=== PATIENT | female | born 1985 | race African-American/Black ===

== ENCOUNTER 2016-07-03 12:16 | Emergency (ER) | payer OTHER ==
[~2016-07-03] VITALS: Ht 162.6 cm; Wt 86.6 kg
[~2016-07-03 12:16] MED LIST: AMOXICILLIN500 MG ORAL; AUGMENTIN600 MG/5 M ORAL; FIORICET1 EA PO; HYCET 7.5 MG-3473 ML ORAL; IBUPROFEN100 MG/5 M ORAL; IBUPROFEN600 MG ORAL; KEFLEX500 MG ORAL; METRONIDAZOLE500 MG PO; NKM; NORCO 5-325 TA1 EACH ORAL; NORCO 7.5-3251 EACH PO; PHENAZOPYRIDIN100 MG ORAL; PNV-OB WITH DH1 EACH PO; PREDNISOLO15 MG/5 M1 PO; TRAMADOL HCL50 MG ORAL
[2016-07-03 12:20] VITALS: BP 92/59
--- NOTE | 2016-07-03 12:42 | Emergency Room Report ---
History of Present Illness General Chief Complaint: Female Urogenital Problems Source: Patient Present Illness HPI 31-year-old female presents to emergency Department complaining of frequency x1 week. Patient reports intermittent dysuria only if she has to hold her urine. Patient denies hematuria denies low back pain denies nausea, vomiting, fevers, chills. She denies and states that she has IUD.Denies vaginal discharge, abdominal pain or rashes. Denies CP, Palpitations, LOC, AMS, dizziness, Changes in Vision, Sensation, paresthesias, or a sudden severe headache. Allergies: Coded Allergies: No Known Allergies (Unverified , 04/06/12) Patient History Past Medical History: see triage record Past Surgical History: none Pertinent Family History: none Last Menstrual Period: 06/29/2016 Now: No Immunizations: UTD Reviewed Nursing Documentation: PMH: Agreed, PSxH: Agreed Nursing Documentation-PMH Past Medical History: No Stated History Review of Systems All Other Systems: negative except mentioned in HPI Physical Exam Vital Signs Date Time Temp Pulse Resp B/P Pulse Ox O2 Delivery O2 Flow Rate FiO2 07/03/16 12:20 97.0 78 16 92/59 99 Room Air Sp02 EP Interpretation: reviewed, normal General Appearance: no apparent distress, alert, GCS 15, non-toxic Head: normocephalic, atraumatic Eyes: bilateral eye PERRL, bilateral eye normal inspection ENT: hearing grossly normal, normal pharynx, no angioedema, normal voice Neck: full range of motion, supple/symm/no masses Respiratory: lungs clear, normal breath sounds, speaking full sentences Cardiovascular #1: regular rate, rhythm, no edema Rectal: deferred Genitourinary: normal inspection, no CVA tenderness Musculoskeletal: back normal, gait/station normal, normal range of motion, non- tender Neurologic: alert, oriented x3, responsive, motor strength/tone normal, sensory intact, speech normal Psychiatric: judgement/insight normal, memory normal, mood/affect normal Skin: normal color, no rash, warm/dry, well hydrated Medical Decision Making PA Attestation Dr. Matt is my supervising Physician whom patient management has been discussed with. Diagnostic Impression: Primary Impression: UTI (urinary tract infection) Qualified Codes: N30.00 - Acute cystitis without hematuria Additional Impression: Frequency of urination ER Course 31-year-old female presents to emergency Department complaining of frequency x1 week. Patient reports intermittent dysuria only if she has to hold her urine. Patient denies hematuria denies low back pain denies nausea, vomiting, fevers, chills. She denies and states that she has IUD.Denies vaginal discharge, abdominal pain or rashes. Ddx considered but are not limited to UTi , Pyelo, STI, Stone, Cystitis Vital signs: are WNL, pt. is afebrile H&PE are most consistent with UTI ORDERS: - UA labs are attached : elevated WBC's and leukocytes with few bacteria consistent with acute infection. ED INTERVENTIONS: None required at this time. DISCHARGE: At this time pt. is stable for d/c to home. Will provide printed patient care instructions, and any necessary prescriptions. Care plan and follow up instructions have been discussed with the patient prior to discharge. Labs Test 07/03/16 12:25 Urine Color Pale yellow Urine Appearance Clear Urine pH 6 (4.5-8.0) Urine Specific [place] 1.010 (1.005-1.035) Urine Protein Negative (NEGATIVE) Urine Glucose (UA) Negative (NEGATIVE) Urine Ketones Negative (NEGATIVE) Urine Occult Blood 1+ (NEGATIVE) Urine Nitrite Negative (NEGATIVE) Urine Bilirubin Negative (NEGATIVE) Urine Urobilinogen Normal MG/DL (0.0-1.0) Urine Leukocyte Esterase 2+ (NEGATIVE) Urine RBC 0-2 /HPF (0 - 2) Urine WBC 5-10 /HPF (0 - 2) Urine Squamous Epithelial Cells Few /LPF (NONE/OCC) Urine Bacteria Few /HPF (NONE) Urine HCG, Qualitative Negative Last Vital Signs Date Time Temp Pulse Resp B/P Pulse Ox O2 Delivery O2 Flow Rate FiO2 07/03/16 12:20 97.0 16 92/59 99 Room Air 07/03/16 12:20 78 Disposition: HOME, SELF-CARE Condition: Stable Scripts Nitrofurantoin Monohyd/M-Cryst* (MACROBID 100 MG*) 100 Mg Capsule 100 MG ORAL EVERY 12 HOURS for 5 Days, #10 CAP Prov: Sandhya Gonzales 07/03/16 Referrals: [facility],REFERRING (PCP) Patient Instructions: Urinary Tract Infection Additional Instructions: Take medications as directed. Follow up with PCP in 3-5 days Return sooner to ED if new symptoms occur, or current symptoms become worse. - Please note that this Emergency Department Report was dictated using [employer] technology software, occasionally this can lead to erroneous entry secondary to interpretation by the dictation equipment. Sandhya Gonzales Jul 03, 2016 12:42
[2016-07-03 12:53] LABS: APPEARANCE,URINE CLEAR; KETONES,URINE NEGATIVE (NEGATIVE); LEUKOCYTE ESTERASE ,URINE 2+ (NEGATIVE); NITRITE,URINE NEGATIVE (NEGATIVE); PH,URINE 6 (4.5-8.0); PROTEIN,URINE NEGATIVE (NEGATIVE); UROBILINOGEN,URINE NORMAL MG/DL (0.0-1.0)
[2016-07-03 13:08] LABS: BACTERIA,URINE FEW /HPF; RBC,URINE 0-2 /HPF (0 - 2); SQUAMOUS EPITHELIAL CELL,UR FEW /LPF (NONE/OCC)
[2016-07-03] MEDS ORDERED: NITROFURANTOIN100 M2 ORAL (13:11)
[2016-07-03 13:29] VITALS: BP 92/59
== END 2016-07-03 13:30 | disposition home or self-care (01) ==
LOC: EMR 12:35
DX: N30.00 Acute cystitis without hematuria (principal); Z97.5 Presence of (intrauterine) contraceptive device
CPT/HCPCS: 81003; 81025; 99283

== ENCOUNTER 2017-03-14 00:41 | Emergency (ER) | payer MEDICAID, OTHER ==
[~2017-03-14] VITALS: Ht 160 cm; Wt 89.8 kg
[~2017-03-14 00:41] MED LIST changes: +NITROFURANTOIN100 M2 ORAL
[2017-03-14 00:44] VITALS: BP 114/67
[2017-03-14 01:32] LABS: APPEARANCE,URINE CLEAR; KETONES,URINE NEGATIVE (NEGATIVE); NITRITE,URINE NEGATIVE (NEGATIVE); PH,URINE 6 (4.5-8.0); PROTEIN,URINE NEGATIVE (NEGATIVE); UROBILINOGEN,URINE NORMAL MG/DL (0.0-1.0)
[2017-03-14 01:44] LABS: LEUKOCYTE ESTERASE ,URINE 1+ (NEGATIVE)
[2017-03-14 01:45] LABS: SQUAMOUS EPITHELIAL CELL,UR FEW /LPF (NONE/OCC)
[2017-03-14 03:30] VITALS: BP 110/74
--- NOTE | 2017-03-14 03:59 | Emergency Room Report ---
History of Present Illness General Chief Complaint: Abdominal Pain Source: Patient Present Illness HPI 31-year-old female with 2-3 days of umbilical pain "feels like baby kicking around." Negative urine test at [facility]. Patient convinced she is . Denies nausea/vomiting, diarrhea, urinary complaints. Had IUD removed a few months ago - hasnt had normal menstrual period since Thinks it may be happening now Allergies: Coded Allergies: No Known Allergies (Unverified , 04/06/12) Patient History Past Medical History: none Past Surgical History: none Pertinent Family History: none Social History: Denies: smoking, alcohol use, drug use Last Menstrual Period: UNK Now: No Immunizations: UTD Reviewed Nursing Documentation: PMH: Agreed, PSxH: Agreed Nursing Documentation-PMH Past Medical History: No Stated History Review of Systems All Other Systems: negative except mentioned in HPI Physical Exam Vital Signs Date Time Temp Pulse Resp B/P (MAP) Pulse Ox O2 Delivery O2 Flow Rate FiO2 03/14/17 00:44 97.6 81 16 114/67 97 Room Air Sp02 EP Interpretation: reviewed, normal General Appearance: normal inspection, well appearing, no apparent distress, alert, GCS 15, non-toxic Head: normocephalic, atraumatic Eyes: bilateral eye PERRL, bilateral eye EOMI ENT: normal ENT inspection, hearing grossly normal, normal pharynx, no angioedema, normal voice, TMs + canals normal, uvula midline, moist mucus membranes Neck: normal inspection, full range of motion, supple, thyroid normal, no meningismus, no bony tend Respiratory: normal inspection, lungs clear, normal breath sounds, no rhonchi, no respiratory distress, no retraction, no accessory muscle use, no wheezing, speaking full sentences Cardiovascular #1: regular rate, rhythm, no edema, no JVD, normal capillary refill Gastrointestinal: normal inspection, normal bowel sounds, non tender, soft, no mass, no peritonitis, non-distended, no guarding, no hernia, no pulsatile mass, other - periumbilical scar. Non-focal abdomen. Genitourinary: no CVA tenderness Musculoskeletal: normal inspection, back normal, normal range of motion, no calf tenderness, pelvis stable, Oneil's Sign negative Neurologic: normal inspection, alert, oriented x3, responsive, film librarian III-XII nml as tested, motor strength/tone normal, cerebellar normal, normal gait, speech normal Psychiatric: normal inspection, judgement/insight normal, mood/affect normal, no suicidal/homicidal ideation, no delusions Skin: normal inspection, normal color, no rash Lymphatic: normal inspection, no adenopathy Medical Decision Making Diagnostic Impression: Primary Impression: Menstrual cramps ER Course Urine and serum test negative UA negative for infection - some hematuria Improved symptoms with toradol, tylenol Advised motrin as needed for pain Likely menstrual cramping/pain Non-focal abdomen, stable vitals - unlikely acute bacterial or surgical process ER course: Patient has remained stable during ED stay. Patient is to be discharged to home. Patient is instructed to follow up with their primary care doctor within 5 days. Patient is instructed to follow up with *specialist within 3 days. Strict return precautions discussed with patient such as fever, chills, worsening/severe pain, nausea, vomiting, which may indicate severe illness. Patient verbalizes understanding and agrees with plan. Please note that this Emergency Department Report was dictated using [employer] technology software, occasionally this can lead to erroneous entry secondary to interpretation by the dictation equipment Last Vital Signs Date Time Temp Pulse Resp B/P (MAP) Pulse Ox O2 Delivery O2 Flow Rate FiO2 03/14/17 00:49 97.5 81 16 114/67 97 Room Air Status: improved Disposition: HOME, SELF-CARE Condition: Improved Patient Instructions: Abdominal Pain, Adult Additional Instructions: - Take ibuprofen every 8 hours with food as needed for pain - Both urine and blood/serum tests negative for CASEY HENDERSON M.D. Mar 14, 2017 03:59
[2017-03-14 04:00] VITALS: BP 110/74
== END 2017-03-14 04:00 | disposition home or self-care (01) ==
LOC: EMR 00:54
DX: R25.2 Cramp and spasm (principal); R31.9 Hematuria, unspecified
CPT/HCPCS: 36415; 81003; 81025; 84702; 99284

== ENCOUNTER 2017-04-02 19:26 | Emergency (ER) | payer MEDICAID, OTHER ==
[~2017-04-02] VITALS: Ht 160 cm; Wt 89.4 kg
[2017-04-02 20:00] VITALS: BP 113/74
[2017-04-02 20:58] LABS: APPEARANCE,URINE CLEAR; BILIRUBIN, URINE NEGATIVE (NEGATIVE); COLOR,URINE PALE YELLOW; GLUCOSE, URINE (UA) NEGATIVE (NEGATIVE); KETONES,URINE NEGATIVE (NEGATIVE); LEUKOCYTE ESTERASE ,URINE 2+ (NEGATIVE); NITRITE,URINE NEGATIVE (NEGATIVE); PH,URINE 7 (4.5-8.0); PROTEIN,URINE NEGATIVE (NEGATIVE); UROBILINOGEN,URINE NORMAL MG/DL (0.0-1.0)
[2017-04-02] MEDS ORDERED: NAPROSYN500 M1 ORAL (21:11)
[2017-04-02 21:20] VITALS: BP 117/74
--- NOTE | 2017-04-02 22:16 | Emergency Room Report ---
History of Present Illness General Chief Complaint: Abdominal Pain Source: Patient Present Illness HPI The patient is a 32-year-old female presenting for abdominal pain. She was seen in this emergency department approximately one month ago for the same complaint. She states that she is feeling movement in her mid lower abdomen as well as an 8/10 dull ache. Pain does not radiate. No known provoking relieving factors. She states that it feels like a fetus is moving inside her. She had a test done during her last visit which was negative. She states that she has not had a period for 6 months. This is not typical for her. She is not taking control. She denies other symptoms including nausea, vomiting, fever, chills, night sweats, weight loss, dizziness Allergies: Coded Allergies: No Known Allergies (Unverified , 04/06/12) Patient History Past Medical History: see triage record Pertinent Family History: none Last Menstrual Period: 6 months Reviewed Nursing Documentation: PMH: Agreed, PSxH: Agreed Nursing Documentation-PMH Past Medical History: No Stated History Review of Systems All Other Systems: negative except mentioned in HPI Physical Exam Vital Signs Date Time Temp Pulse Resp B/P (MAP) Pulse Ox O2 Delivery O2 Flow Rate FiO2 04/02/17 19:46 98.8 99 16 113/74 96 Room Air Sp02 EP Interpretation: reviewed, normal General Appearance: no apparent distress, alert, GCS 15, non-toxic Head: normocephalic, atraumatic Eyes: bilateral eye normal inspection, bilateral eye PERRL ENT: hearing grossly normal, normal pharynx, no angioedema, normal voice Neck: full range of motion, supple/symm/no masses Respiratory: chest non-tender, lungs clear, normal breath sounds, speaking full sentences Gastrointestinal: normal bowel sounds, soft, non-distended, no guarding, no rebound Musculoskeletal: back normal, gait/station normal, normal range of motion, non- tender Neurologic: alert, oriented x3, responsive, motor strength/tone normal, sensory intact, speech normal Psychiatric: judgement/insight normal, memory normal, mood/affect normal, no suicidal/homicidal ideation Skin: normal color, no rash, warm/dry, well hydrated Medical Decision Making PA Attestation Dr. Barillas is my supervising physician. Patient management was discussed with my supervising physician Diagnostic Impression: Primary Impression: Abdominal pain Qualified Codes: R10.9 - Unspecified abdominal pain Additional Impression: Amenorrhea ER Course The patient is a 32-year-old female presenting for abdominal pain. Differential diagnoses considered include but not limited to gastritis, pancreatitis, appendicitis, , UTI, BV, SUB, among others PE: NAD Abdomen soft and nontender. Normal bowel sounds. Nondistended. No fundus is felt. No CVA tenderness Urinalysis unremarkable Bedside ultrasound shows empty uterus. No fetus The patient is discharged home with prescription for Naprosyn and will follow up with primary doctor for further evaluation of amenorrhea. She was told she needs to followup as soon as possible. ER precautions are given Labs Test 04/02/17 20:40 Urine Color Pale yellow Urine Appearance Clear Urine pH 7 (4.5-8.0) Urine Specific [place] 1.010 (1.005-1.035) Urine Protein Negative (NEGATIVE) Urine Glucose (UA) Negative (NEGATIVE) Urine Ketones Negative (NEGATIVE) Urine Occult Blood Negative (NEGATIVE) Urine Nitrite Negative (NEGATIVE) Urine Bilirubin Negative (NEGATIVE) Urine Urobilinogen Normal MG/DL (0.0-1.0) Urine Leukocyte Esterase 2+ (NEGATIVE) Urine RBC 0-2 /HPF (0 - 2) Urine WBC 2-4 /HPF (0 - 2) Urine Squamous Epithelial Cells Few /LPF (NONE/OCC) Urine Bacteria Few /HPF (NONE) Urine HCG, Qualitative Negative Lab Results Impression unremarkable Last Vital Signs Date Time Temp Pulse Resp B/P (MAP) Pulse Ox O2 Delivery O2 Flow Rate FiO2 04/02/17 19:46 98.8 99 16 113/74 96 Room Air Status: improved Disposition: HOME, SELF-CARE Condition: Improved Scripts Naproxen* (NAPROSYN*) 500 Mg Tablet 500 MG ORAL TWICE A DAY, #60 TAB Prov: THOMAS KWON P.A. 04/02/17 Patient Instructions: Secondary Amenorrhea, Abdominal Pain, Adult Additional Instructions: I discussed my findings with the patient. All questions and concerns have been answered. Treatment and medication compliance have been addressed. I advised the patient that they need to follow up with PMD in 3-5 days. Return to ED if symptoms worsen, new symptoms arise, or if needed for any reason. Patient verbalized understanding of discharge instructions. Please followup with your primary doctor as soon as possible in order to obtain further testing and evaluation. THOMAS KWON Apr 02, 2017 22:16
== END 2017-04-02 21:20 | disposition home or self-care (01) ==
LOC: EMR 20:13
DX: R10.9 Unspecified abdominal pain (principal); N91.2 Amenorrhea, unspecified
CPT/HCPCS: 81003; 81025; 99283

== ENCOUNTER 2017-05-21 11:34 | Emergency (ER) | payer MEDICAID ==
[~2017-05-21] VITALS: Ht 162.6 cm; Wt 90.7 kg
[~2017-05-21 11:34] MED LIST changes: +NAPROSYN500 M1 ORAL
[2017-05-21 11:56] VITALS: BP 123/80
[2017-05-21] MEDS ORDERED: Acetaminophen 500mg (ES) tab ORAL ONE (12:15)
[2017-05-21] MEDS ORDERED: Dexamethasone Elixir 0.25mg/2.5ml ORAL ONE (12:15)
--- NOTE | 2017-05-21 12:26 | Emergency Room Report ---
History of Present Illness General Chief Complaint: Sore Throat Source: Patient Present Illness HPI 32 yo female patient present to ER complaining of sore throat and fever x3 days. Patient report difficulty opening her mouth. Patient reports able to speak. Patient denies use of medication during this time. Reports difficulty eating during this time. Reports repeated episodes of similar symptoms; states last occurrence was 1 year ago. Patient was previously seen in the ER for similar symptoms; was negative for retropharyngeal abscess at that time. Patient reports she has not followed up with her primary care provider for treatment. Tiffany SOB, chest pain, difficulty breathing, rash, [place]. Allergies: Coded Allergies: No Known Allergies (Unverified , 04/06/12) Patient History Past Medical History: see triage record Last Menstrual Period: 05/10/17 Reviewed Nursing Documentation: PMH: Agreed, PSxH: Agreed Nursing Documentation-PMH Past Medical History: No Stated History Review of Systems All Other Systems: negative except mentioned in HPI Physical Exam Vital Signs Date Time Temp Pulse Resp B/P (MAP) Pulse Ox O2 Delivery O2 Flow Rate FiO2 05/21/17 11:45 101.3 110 17 123/80 98 Room Air 101.3 Sp02 EP Interpretation: reviewed, normal General Appearance: well appearing, no apparent distress, alert, GCS 15, non- toxic Head: normocephalic, atraumatic Eyes: bilateral eye normal inspection, bilateral eye PERRL ENT: hearing grossly normal, no angioedema, normal voice, TMs + canals normal, uvula midline, moist mucus membranes, tonsillar swelling, pharyngeal erythema, tonsillar exudate Neck: full range of motion, supple, no bony tend, tender lateral - right anterior Respiratory: normal inspection, lungs clear, normal breath sounds, no rhonchi, no respiratory distress, no accessory muscle use, no wheezing, speaking full sentences, other - no stridor Cardiovascular #1: regular rate, rhythm Musculoskeletal: back normal, digits/nails normal, gait/station normal, normal range of motion Neurologic: alert, oriented x3, responsive, motor strength/tone normal, sensory intact, normal gait Psychiatric: mood/affect normal Skin: no rash Lymphatic: no adenopathy Medical Decision Making PA Attestation Dr. Perez is my supervising Physician whom patient management has been discussed with. Diagnostic Impression: Primary Impression: Tonsillitis ER Course Pt presents to ED c/o sore throat and fever. DDX considered but are not limited to pharyngitis, laryngitis, URI, peritonsillar abscess, tonsillitis, retropharyngeal abscess. Low suspicion for peritonsillar abscess and retropharyngeal abscess: patient able to talk, no hot potato voice, swallow food, full ROM of neck, uvula midline , no SOB, able to move tongue. Patient does not require imaging at this time. Exudates observed on tonsils bilaterally. Patient was observed drinking water and taking pain medication pill without difficulty. VITAL SIGNS patient is tachycardic, patient is febrile. Provide patient with Tylenol. ER COURSE -Dexamethasone provided to patient -Toradol provided to patient -Informed patient likely tonsillitis. Patient instructed she needs strict followup with physician in 48 hours to check on course of symptoms. Patient reports understanding and agreement to treatment plan. Patient seen and evaluated by Dr. Perez; agrees with above treatment and plan. Patient reports feeling "much better" following administration of medication; able to open mouth farther without difficulty. Patient is patient resting comfortably, in no acute distress, nontoxic appearing. Patient not having difficulty breathing, speaking in full sentences. Patient is stable for outpatient treatment at this time. DISCHARGE: At this time pt is stable for d/c to home. Patient resting comfortably, nontoxic appearing, able to drink fluids without difficulty. Will provide with patient care instructions and any necessary prescriptions. Patient to take medication as instructed. Care plan and follow-up instructions provided. Patient questions asked and answered. Patient instructed to follow-up with primary care provider in 48 hours for further treatment and followup. ER precautions given. Patient instructed to return to ER immediately for any new or worsening of symptoms including but not limited to persistent fever, difficulty breathing, change in voice, SOB. Last Vital Signs Date Time Temp Pulse Resp B/P (MAP) Pulse Ox O2 Delivery O2 Flow Rate FiO2 05/21/17 11:56 101.3 17 123/80 98 Room Air 101.3 05/21/17 11:45 110 Disposition: HOME, SELF-CARE Condition: Stable Scripts Acetaminophen* (TYLENOL EXTRA STRENGTH*) 500 Mg Tablet 500 MG ORAL Q8H Y for Prn Headache/Temp > 101, #30 TAB 0 Refills Prov: Garrett Garcia 05/21/17 Amoxicillin* (AMOXIL*) 500 Mg Capsule 500 MG ORAL EVERY 8 HOURS for 7 Days, #21 CAP Prov: Garrett Garcia 05/21/17 Patient Instructions: Tonsillitis Additional Instructions: Followup with primary care provider or return to ER in 48 hours for recheck. Take medications as directed. Patient questions asked and answered. ER precautions given, patient instructed to return to ER immediately for any new or worsening of symptoms. Garrett Garcia May 21, 2017 12:26
[2017-05-21] MEDS ORDERED: Dexamethasone 4mg/ml vial IM ONE (12:30)
[2017-05-21] MEDS ORDERED: TYLENOL EXTRA500 MG ORAL (12:34)
[2017-05-21] MEDS ORDERED: AMOXICILLIN500 MG ORAL (12:34)
[2017-05-21] MEDS ORDERED: Ketorolac 30mg Inj IM ONE (12:45)
[2017-05-21 13:17] VITALS: BP 100/64
[2017-05-21 13:21] VITALS: BP 100/64
== END 2017-05-21 13:24 | disposition home or self-care (01) ==
LOC: EMR 12:40
DX: J03.90 Acute tonsillitis, unspecified (principal)
CPT/HCPCS: 96372; 99284; J1100; J1885

== ENCOUNTER → 2018-04-10 | Emergency (ER) | payer SELFPAY ==
[~2018-04-10] VITALS: Ht 160 cm; Wt 61.2 kg
[~2018-04-10] MED LIST changes: +ROBAXIN500 MG PO; +TYLENOL EXTRA500 MG ORAL
[2018-04-10 20:00] VITALS: BP 93/63
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
[2018-04-10 20:43] VITALS: BP 93/63
--- NOTE | 2018-04-10 20:43 | NUR ---
ED Nurse Note: pt was cleared for discharge by ruth. prescription and discharge instruction explained and pt able to verbalize understanding. id band removed. pt able to walk with steady gait. pt left the ed with all belongings.
== END | disposition home or self-care (01) ==
LOC: EMR 20:11
DX: S19.9XXA Unspecified injury of neck, initial encounter (principal); S49.91XA Unspecified injury of right shoulder and upper arm, initial encounter; V43.52XA Car driver injured in collision with other type car in traffic accident, initial encounter; Y92.411 Interstate highway as the place of occurrence of the external cause
CPT/HCPCS: 99282

== ENCOUNTER 2018-04-22 19:47 | Emergency (ER) | payer SELFPAY ==
[~2018-04-22] VITALS: Ht 160 cm; Wt 61.2 kg
[2018-04-22 20:05] VITALS: BP 97/66
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
[2018-04-22] MEDS ORDERED: Acetaminophen 500mg (ES) tab ORAL ONE (20:30)
[2018-04-22] MEDS ORDERED: PAIN RELIEVER500 M1 PO (20:32)
[2018-04-22 20:37] VITALS: BP 100/67
[2018-04-22 20:38] VITALS: BP 100/67
--- NOTE | 2018-04-22 20:38 | NUR ---
ED Nurse Note: Pt is DC per ERMD orders. pt is alert and oriented times 4 and understands all DC notes and instructions. pt is instructed to follow up with main provider as soon as possible. pt is instructed to return to ER is any variance in condition. pt left with all belongings as well as DC notes and instructions. pt vital signs, condition and status is reported to ERMD prior to DC. pt is stable for DC. pt vital signs is stable. pt is able to ambulate. pt ID band removed.
--- NOTE | 2018-04-22 22:42 | Emergency Room Report ---
History of Present Illness General Chief Complaint: Laceration Source: Patient Present Illness HPI Patient is a 33-year-old female presented after increased headache and forehead pain after hitting her head on a cabinet. She reports having some increased bleeding initially. This had resolved after direct pressure. Injury occurred approximate 1 hour prior to arrival. She reports having up-to-date tetanus vaccine. She denies any vomiting. She denies any weakness or lightheadedness. Allergies: Coded Allergies: No Known Allergies (Unverified , 04/22/18) Patient History Past Medical History: see triage record Last Menstrual Period: 04/02/2018 Now: Yes : 4 Para: 3 Reviewed Nursing Documentation: PMH: Agreed; PSxH: Agreed Nursing Documentation-PMH Past Medical History: No Stated History Review of Systems All Other Systems: negative except mentioned in HPI Physical Exam Vital Signs Date Time Temp Pulse Resp B/P (MAP) Pulse Ox O2 Delivery O2 Flow Rate FiO2 04/22/18 19:55 98.2 99 16 97/66 97 Room Air General Appearance: well appearing, no apparent distress, alert, GCS 15 Head: normocephalic, atraumatic ENT: hearing grossly normal, normal voice Neck: full range of motion, supple Respiratory: no respiratory distress, speaking full sentences Musculoskeletal: no calf tenderness Neurologic: normal gait Psychiatric: mood/affect normal Skin: no rash, laceration - forehead scalp laceratoin Procedures Laceration/Wound Repair Laceration/Wound Repair : Consent: Verbal Wound Location: face Wound's Depth, Shape: superficial Wound Length (cm): 1 Wound Explored: clean Wound Repaired With: Dermabond Patient Tolerated: Well Complications: None Medical Decision Making Diagnostic Impression: Primary Impression: Laceration of forehead ER Course Patient presented for head injury. Differential diagnosis include was not limited to laceration, fracture, foreign body among others. Patient has a benign exam and does not appear to require any further imaging or laboratory testing at this time. Patient was noted to have controlled bleeding. Laceration was fairly small was closed with Dermabond. Patient given Tylenol for headache. She did not appear to require any imaging at this time. Patient is advised to return if she began having worsening headache persistent vomiting or other concerns. Last Vital Signs Date Time Temp Pulse Resp B/P (MAP) Pulse Ox O2 Delivery O2 Flow Rate FiO2 1/29/19 20:38 98.2 68 16 100/67 99 Room Air Status: improved Disposition: HOME, SELF-CARE Condition: Improved Scripts Acetaminophen (PAIN RELIEVER) 500 Mg Tablet 500 MG PO Q4HR for headahce, #30 TAB Prov: Gunnar An MD 04/22/18 Referrals: NOT CHOSEN IPA/,REFERRING (PCP) Patient Instructions: Tissue Adhesive Wound Care Gunnar An MD Apr 22, 2018 22:42
== END 2018-04-22 20:40 | disposition home or self-care (01) ==
LOC: EMR 20:32
DX: S01.81XA Laceration without foreign body of other part of head, initial encounter (principal); W22.03XA Walked into furniture, initial encounter; Y92.89 Other specified places as the place of occurrence of the external cause
CPT/HCPCS: 99283

== ENCOUNTER 2018-06-06 15:13 | Emergency (ER) | payer MEDICAID ==
[~2018-06-06] VITALS: Ht 160 cm; Wt 61.2 kg
[~2018-06-06 15:13] MED LIST changes: +PAIN RELIEVER500 M1 PO
[2018-06-06] MEDS ORDERED: NKM (15:21)
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
[2018-06-06 15:35] VITALS: BP 108/72
[2018-06-06] MEDS ORDERED: Methocarbamol 500mg tab ORAL ONE (16:00)
[2018-06-06] MEDS ORDERED: Ketorolac 30mg Inj IM ONE (16:00)
[2018-06-06] MEDS ORDERED: TRAMADOL HCL50 MG ORAL (16:07)
[2018-06-06] MEDS ORDERED: IBUPROFEN600 MG ORAL (16:07)
[2018-06-06] MEDS ORDERED: LIDOCAINE700 M1 TP (16:07)
[2018-06-06] MEDS ORDERED: ROBAXIN500 MG PO (16:07)
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
--- NOTE | 2018-06-06 16:20 | NUR ---
ED Nurse Note: PT SITTING PEACEFULLY IN BED IN NAD. AOX4. PRESCRIPTIONS AND DISCHARGE PAPERWORK EXPLAINED TO PT. PT VERBALIZES UNDERSTANDING AND ALL QUESTIONS ANSWERED. PRESCRIPTIONS AND DISCHARGE PAPERWORK GIVEN TO PT AND ID WRISTBAND REMOVED. PT WALKED OUT OF ER WITH STEADY GAIT AND ALL BELONGINGS.
[2018-06-06 16:30] VITALS: BP 114/76
== END 2018-06-06 16:20 | disposition home or self-care (01) ==
LOC: EMR 15:59
DX: S13.4XXA Sprain of ligaments of cervical spine, initial encounter (principal); V43.62XA Car passenger injured in collision with other type car in traffic accident, initial encounter; Y92.410 Unspecified street and highway as the place of occurrence of the external cause
CPT/HCPCS: 96372; 99283

== ENCOUNTER 2018-07-16 14:22 | Emergency (ER) | payer MEDICAID ==
[~2018-07-16] VITALS: Ht 152.4 cm; Wt 61.2 kg
[~2018-07-16 14:22] MED LIST changes: +LIDOCAINE700 M1 TP
[2018-07-16 14:30] VITALS: BP 101/67
--- NOTE | 2018-07-16 14:30 | NUR ---
ED Nurse Note: Patient walked into ED c/o fever, at time of arrival patients temp was 102.5 patient also complains of general body aches, patient is alert and oriented x4, ambulatory with a steady gait, VSS
[2018-07-16] MEDS ORDERED: Morphine Sulfate 4mg/ml Inj (IV USE ONLY) IVP ONE (15:15)
--- NOTE | 2018-07-16 15:17 | Emergency Room Report ---
History of Present Illness General Chief Complaint: General Complaint Source: Patient Present Illness HPI Otherwise healthy 33-year-old female who complains of chills, body aches, fever , headache since this morning. She feels similar to her previous urinary tract infection. She denies any vomiting. He has complaining of nausea. No exacerbating or relieving doctor. Allergies: Coded Allergies: No Known Allergies (Unverified , 07/16/18) Patient History Past Medical History: none Past Surgical History: other - Liposuction approximately 1 mo ago Pertinent Family History: none Last Menstrual Period: 07/02/18 Now: No Nursing Documentation-[facility] Past Medical History: No Stated History Review of Systems Constitutional: Denies: fever Eye: Denies: acuity changes Respiratory: Denies: cough, shortness of breath Cardiovascular: Denies: chest pain Gastrointestinal: Denies: nausea, vomiting Skin: Denies: rash Neurological: Denies: headache All Other Systems: negative except mentioned in HPI Physical Exam Vital Signs Date Time Temp Pulse Resp B/P (MAP) Pulse Ox O2 Delivery O2 Flow Rate FiO2 07/16/18 14:25 102.6 133 22 101/67 97 Room Air General Appearance: well appearing, no apparent distress Head: normocephalic, atraumatic ENT: hearing grossly normal, normal voice Neck: full range of motion, supple Respiratory: no respiratory distress, speaking full sentences Gastrointestinal: normal inspection, normal bowel sounds, non tender, soft Genitourinary: CVA tenderness (R) Musculoskeletal: normal inspection, no calf tenderness Neurologic: alert, normal gait Psychiatric: mood/affect normal Skin: no rash Medical Decision Making Diagnostic Impression: Primary Impression: Pyelonephritis ER Course Patient presented with significant complexity or risk requiring multiple bedside evaluations. Particularly very concerned about acute sepsis, meningitis , encephalitis, septic shock, pyelonephritis. The patient has had multiple bedside evaluations. Patient is nontoxic-appearing. Fever has been defervesced. Blood work was reviewed. Lactic acid were reviewed. The patient was initially given IV morphine for pain she was also given IV Toradol as well. The patient has no meningeal signs. CT was reviewed to to her headache. I do not feel the patient is indication for lumbar puncture. She is alert without any change in mental status. The patient was given IV Rocephin. She will be discharged home with pain medication and antibiotics and to follow-up with her primary care physician as an outpatient. Her abdomen is soft and nontender. Lab Results Impression Laboratory Tests Test 07/16/18 15:20 07/16/18 15:24 07/16/18 17:45 Urine Color Pale yellow Urine Appearance Clear Urine pH 7 (4.5-8.0) Urine Specific [place] 1.005 (1.005-1.035) Urine Protein Negative (NEGATIVE) Urine Glucose (UA) Negative (NEGATIVE) Urine Ketones Negative (NEGATIVE) Urine Blood 3+ (NEGATIVE) H Urine Nitrite Negative (NEGATIVE) Urine Bilirubin Negative (NEGATIVE) Urine Urobilinogen 4 MG/DL (0.0-1.0) H Urine Leukocyte Esterase 2+ (NEGATIVE) H Urine RBC 5-10 /HPF (0 - 2) H Urine WBC 10-15 /HPF (0 - 2) H Urine Squamous Epithelial Cells Few /LPF (NONE/OCC) Urine Amorphous Sediment Few /LPF (NONE) H Urine Bacteria Many /HPF (NONE) H Urine HCG, Qualitative Negative (NEGATIVE) White Blood Count 9.9 K/UL (4.8-10.8) Red Blood Count 3.73 M/UL (4.20-5.40) L Hemoglobin 11.2 G/DL (12.0-16.0) L Hematocrit 34.3 % (37.0-47.0) L Mean Corpuscular Volume 92 FL (80-99) Mean Corpuscular Hemoglobin 30.0 PG (27.0-31.0) Mean Corpuscular Hemoglobin Concent 32.6 G/DL (32.0-36.0) Red Cell Distribution Width 13.7 % (11.6-14.8) Platelet Count 141 K/UL (150-450) L Mean Platelet Volume 6.8 FL (6.5-10.1) Neutrophils (%) (Auto) % (45.0-75.0) Lymphocytes (%) (Auto) % (20.0-45.0) Monocytes (%) (Auto) % (1.0-10.0) Eosinophils (%) (Auto) % (0.0-3.0) Basophils (%) (Auto) % (0.0-2.0) Differential Total Cells Counted 100 Neutrophils % (Manual) 82 % (45-75) H Lymphocytes % (Manual) 9 % (20-45) L Monocytes % (Manual) 7 % (1-10) Eosinophils % (Manual) 0 % (0-3) Basophils % (Manual) 0 % (0-2) Band Neutrophils 2 % (0-8) Platelet Estimate Adequate Platelet Morphology Normal Red Blood Cell Morphology Normal Sodium Level 141 MMOL/L (136-145) Potassium Level 3.6 MMOL/L (3.5-5.1) Chloride Level 105 MMOL/L (98-107) Carbon Dioxide Level 28 MMOL/L (21-32) Anion Gap 9 mmol/L (5-15) Blood Urea Nitrogen 9 mg/dL (7-18) Creatinine 1.0 MG/DL (0.55-1.30) Estimate Glomerular Filtration Rate > 60 mL/min (>60) Glucose Level 102 MG/DL (74-106) Calcium Level 8.7 MG/DL (8.5-10.1) Total Bilirubin 1.6 MG/DL (0.2-1.0) H Direct Bilirubin 0.3 MG/DL (0.0-0.3) Aspartate Amino Transferase (AST) 12 U/L (15-37) L Alanine Aminotransferase (ALT) 19 U/L (12-78) Alkaline Phosphatase 48 U/L (46-116) Total Protein 6.6 G/DL (6.4-8.2) Albumin 3.5 G/DL (3.4-5.0) Globulin 3.1 g/dL Albumin/Globulin Ratio 1.1 (1.0-2.7) Lactic Acid Level 0.80 mmol/L (0.4-2.0) Last Vital Signs Date Time Temp Pulse Resp B/P (MAP) Pulse Ox O2 Delivery O2 Flow Rate FiO2 07/16/18 14:25 102.6 133 22 101/67 97 Room Air Status: improved Disposition: HOME, SELF-CARE Condition: Stable Scripts Ondansetron (Zofran) 4 Mg Tablet 4 MG ORAL Q6H PRN for Nausea & Vomiting, #10 TAB Prov: JESSICA LOPEZ 07/16/18 Hydrocodone Bit/Acetaminophen 5-325* (NORCO 5-325*) 1 Each Tablet 1 TAB ORAL Q6H PRN for For Pain, #20 TAB 0 Refills Prov: JESSICA LOPEZ 07/16/18 Ciprofloxacin Hcl* (CIPROFLOXACIN HCL*) 500 Mg Tablet 500 MG ORAL Q12H for 10 Days, #20 TAB 0 Refills Prov: JESSICA LOPEZ. 07/16/18 Patient Instructions: Pyelonephritis, Adult, [id number] JESSICA LOPEZ. Jul 16, 2018 15:17
[2018-07-16 15:45] LABS: ANION GAP 9 mmol/L (5-15); BLOOD UREA NITROGEN 9 mg/dL (7-18); CALCIUM 8.7 MG/DL (8.5-10.1); CARBON DIOXIDE 28 MMOL/L (21-32); CHLORIDE 105 MMOL/L (98-107); HEMATOCRIT 34.3 % (37.0-47.0); HEMOGLOBIN 11.2 G/DL (12.0-16.0); MEAN CORPUSCULAR VOLUME 92 FL (80-99); PLATELET COUNT 141 K/UL (150-450); POTASSIUM 3.6 MMOL/L (3.5-5.1); RED BLOOD COUNT 3.73 M/UL (4.20-5.40); RED CELL DISTRIBUTION WIDTH 13.7 % (11.6-14.8); SODIUM 141 MMOL/L (136-145); WHITE BLOOD COUNT 9.9 K/UL (4.8-10.8)
[2018-07-16 15:46] LABS: APPEARANCE,URINE CLEAR; BILIRUBIN, URINE NEGATIVE (NEGATIVE); COLOR,URINE PALE YELLOW; GLUCOSE, URINE (UA) NEGATIVE (NEGATIVE); KETONES,URINE NEGATIVE (NEGATIVE); LEUKOCYTE ESTERASE ,URINE 2+ (NEGATIVE); NITRITE,URINE NEGATIVE (NEGATIVE); PH,URINE 7 (4.5-8.0); PROTEIN,URINE NEGATIVE (NEGATIVE); UROBILINOGEN,URINE 4 MG/DL (0.0-1.0)
[2018-07-16 15:58] LABS: ALANINE AMINOTRANSFERASE 19 U/L (12-78); ALBUMIN 3.5 G/DL (3.4-5.0); ALBUMIN/GLOBULIN RATIO 1.1 (1.0-2.7); ALKALINE PHOSPHATASE 48 U/L (46-116); ASPARTATE AMINO TRANSFERASE 12 U/L (15-37); BILIRUBIN,TOTAL 1.6 MG/DL (0.2-1.0)
[2018-07-16 15:59] LABS: BILIRUBIN,DIRECT 0.3 MG/DL (0.0-0.3)
[2018-07-16] MEDS ORDERED: Ketorolac 60mg Inj IM ONE (16:45)
--- NOTE | 2018-07-16 16:46 | NUR ---
ED Nurse Note: 0.5ML OF TORADOL 60MG IM ORDERED BY . MARYURI DRAWN BUT DR. LOPEZ CHANGED ORDER TO 0.5ML TORADOL 30ML IV. MED WASTED.
[2018-07-16] MEDS ORDERED: Ketorolac 30mg Inj IV ONE (17:00)
[2018-07-16] MEDS ORDERED: cefTRIAXone 1 GM in NS 55 ML IVPB ONE (17:15)
[2018-07-16] MEDS ORDERED: HYDROmorphone 1mg/ml Carpuject IVP ONE (17:30)
[2018-07-16 18:07] VITALS: BP 98/59
--- NOTE | 2018-07-16 18:07 | NUR ---
ED Nurse Note: Patient still complains of a 8/10 headache, informed Dr. Langley. patient will go to Ct of head
[2018-07-16] MEDS ORDERED: NORCO 5-325 TA1 EACH ORAL (20:23)
[2018-07-16] MEDS ORDERED: CIPROFLOXACIN500 M2 ORAL (20:23)
[2018-07-16] MEDS ORDERED: ZOFRAN4 M1 ORAL (20:24)
[2018-07-16 20:45] VITALS: BP 104/62
--- NOTE | 2018-07-16 20:45 | NUR ---
ER DISCHARGE NOTE: Patient is cleared to be discharged per ERMD, pt is aox4, on room air, with stable vital signs. pt was given dc and prescription instructions, pt was able to verbalize understanding, pt id band and iv site removed without complications. pt is able to ambulate with steady gait. pt took all belongings.
--- NOTE | 2018-07-17 10:25 | Diagnostic Imaging Report ---
Indications: Headache, posterior tingling Technique: Spiral acquisitions obtained through the brain. Angled axial and coronal 5 x 5 mm slices were reconstructed. Total dose length product 1404.13 mGycm. CTDI vol(s) 70.38 mGy. Dose reduction achieved using automated exposure control Comparison: None. Findings: No acute intrarenal hemorrhage or edema. No mass effect nor midline shift. Normal size ventricles and extra axial CSF spaces. Normal albarran-white differentiation. Intact calvarium. Visualized orbits are unremarkable. There is evidence of ethmoid sinus mucosal disease Impression: Negative Incidental finding of minimal ethmoid sinus disease This agrees with the preliminary interpretation provided overnight by Dr. Hinds The CT scanner at [facility] is accredited by the [employer] and the scans are performed using protocols designed to limit radiation exposure to as low as reasonably achievable to attain images of sufficient resolution adequate for diagnostic evaluation.
== END 2018-07-16 20:45 | disposition home or self-care (01) ==
LOC: EMR 15:35
DX: N12 Tubulo-interstitial nephritis, not specified as acute or chronic (principal); R51 Headache
CPT/HCPCS: 36415; 70450; 80053; 81003; 81025; 82248; 83605; 85007; 85025; 87086; 96361; 96365; 96372; 96375; 99284; J0696; J1170; J1885; J2270; J2405

== ENCOUNTER 2018-11-30 21:13 | Emergency (ER) | payer MEDICAID ==
[~2018-11-30] VITALS: Ht 160 cm; Wt 61.2 kg
[~2018-11-30 21:13] MED LIST changes: +CIPROFLOXACIN500 M2 ORAL; +ZOFRAN4 M1 ORAL
[2018-11-30 21:32] VITALS: BP 98/70
--- NOTE | 2018-11-30 21:37 | NUR ---
ER Nruse Note: Pt walked in c/o RT 3rd finger pain after slamming finger on door that occured at 0700. Nail broken, pain 9/ 10 throbbing pain.
[2018-11-30] MEDS ORDERED: Neosporin Oint Ud Pkt TOPIC ONE (21:45)
[2018-11-30] MEDS ORDERED: IBUPROFEN600 MG ORAL (21:47)
--- NOTE | 2018-11-30 21:48 | Emergency Room Report ---
History of Present Illness General Chief Complaint: Upper Extremity Injury Source: Patient Present Illness HPI Is a 33-year-old female who is right-hand dominant. She presents with injury to her right third finger. Onset was acute and occur 7 AM this morning. She actually close a door and her finger. She broke the tip of the finger nail. Pain is throbbing in nature. 8 out of 10. Worse with movement. Minimal swelling but denies any other complaint. Allergies: Coded Allergies: No Known Allergies (Unverified , 07/16/18) Patient History Past Medical History: none, see triage record, old chart reviewed Past Surgical History: none Pertinent Family History: none Last Menstrual Period: 10/31/18 Now: No : 5 Para: 5 Immunizations: UTD Reviewed Nursing Documentation: PMH: Agreed; PSxH: Agreed Nursing Documentation-PMH Past Medical History: No Stated History Review of Systems Eye: Denies: eye pain, blurred vision ENT: Denies: ear pain, nose congestion, throat swelling Respiratory: Denies: cough, shortness of breath Cardiovascular: Denies: chest pain, palpitations Gastrointestinal: Denies: abdominal pain, diarrhea, nausea, vomiting Musculoskeletal: Reports: muscle pain; Denies: back pain, joint pain Skin: Denies: rash Neurological: Denies: headache, numbness Endocrine: Denies: increased thirst, increased urine Hematologic/Lymphatic: Denies: easy bruising All Other Systems: negative except mentioned in HPI Physical Exam Vital Signs Date Time Temp Pulse Resp B/P (MAP) Pulse Ox O2 Delivery O2 Flow Rate FiO2 11/30/18 21:16 98.1 84 16 98/70 (79) 97 Room Air Vitals normal Sp02 EP Interpretation: reviewed, normal General Appearance: well appearing, no apparent distress, alert Head: normocephalic, atraumatic Eyes: bilateral eye PERRL, bilateral eye EOMI ENT: hearing grossly normal, normal pharynx Neck: full range of motion, supple, no meningismus Respiratory: chest non-tender, lungs clear, normal breath sounds Cardiovascular #1: regular rate, rhythm, no murmur Gastrointestinal: normal bowel sounds, non tender, no mass, no organomegaly, no bruit, non-distended Musculoskeletal: back normal, gait/station normal, normal range of motion, other - Right third finger: She has fingernail avulsion at the tip of the finger. About 20% is broken off. No laceration. Swelling. Full range of motion of the DIP joint. Psychiatric: mood/affect normal Procedures Splinting Splinting : Consent: Verbal Location: Right third finger Pre-Made Type: metal Pre-Proc Neuro Vasc Exam: normal Post-Proc Neuro Vasc Exam: normal Patient Tolerated: Well Complications: None Medical Decision Making Diagnostic Impression: Primary Impression: Crushing injury of finger of right hand ER Course Patient presents with request finger of the right hand. Minimal trauma other than nail avulsion. Patient does not want x-rays since fracture is very low. Will discharge home. Last Vital Signs Date Time Temp Pulse Resp B/P (MAP) Pulse Ox O2 Delivery O2 Flow Rate FiO2 11/30/18 21:32 98.1 84 16 98/70 97 Room Air Status: improved Disposition: HOME, SELF-CARE Condition: Stable Scripts Ibuprofen* (MOTRIN*) 600 Mg Tablet 600 MG ORAL THREE TIMES A DAY, #30 TAB 0 Refills Prov: Norris Greenwood MD 11/30/18 Additional Instructions: Follow-up with your doctor in 7 days. Return if worse. Norris Greenwood MD Nov 30, 2018 21:48
[2018-11-30 21:52] VITALS: BP 98/70
--- NOTE | 2018-11-30 21:54 | NUR ---
ED Nurse Note: Pt cleared by health care Provider for discharge. DC instructions/prescription was given and explained to pt and verbalized understanding of teachings. All medical deviecs such as ID band removed. Pt is AAO x4, ambulatory and left with all personal belongings.
== END 2018-11-30 21:55 | disposition home or self-care (01) ==
LOC: EMR 21:38
DX: S61.302A Unspecified open wound of right middle finger with damage to nail, initial encounter (principal); W23.0XXA Caught, crushed, jammed, or pinched between moving objects, initial encounter; Y92.9 Unspecified place or not applicable
CPT/HCPCS: Z7502 ×2; 29130; 99282

== ENCOUNTER 2020-03-22 16:58 | Emergency (ER) | payer MEDICAID, OTHER ==
[~2020-03-22] VITALS: Ht 160 cm; Wt 67.6 kg
[2020-03-22 17:11] VITALS: BP 106/75
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
--- NOTE | 2020-03-22 18:15 | Emergency Room Report ---
History of Present Illness General Chief Complaint: Flu Like Symptoms Source: Patient Present Illness HPI 35-year-old female presents to the emergency department complaining of chills, increase in phlegm as well as body aches since February 18. Patient reports her daughter tested positive on the for COVID-19. Patient denies notable fevers. She denies significant past medical history. She denies asthma, COPD or history of smoking. She denies chest pain, shortness of breath, palpitations or syncope. Patient took NyQuil at approximately 3 PM today. She denies or suspicion of . No other aggravating or relieving factors at this time. 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 Patient History Past Medical History: see triage record Past Surgical History: none Pertinent Family History: none Last Menstrual Period: 02/12/20 Now: No Reviewed Nursing Documentation: PMH: Agreed; PSxH: Agreed Nursing Documentation-PMH Past Medical History: No Stated History Review of Systems All Other Systems: negative except mentioned in HPI Physical Exam Vital Signs Date Time Temp Pulse Resp B/P (MAP) Pulse Ox O2 Delivery O2 Flow Rate FiO2 03/22/20 17:11 98.1 90 16 106/75 (85) 100 Room Air Sp02 EP Interpretation: reviewed, normal General Appearance: no apparent distress, alert, GCS 15, non-toxic Head: normocephalic, atraumatic Eyes: bilateral eye normal inspection, bilateral eye PERRL ENT: hearing grossly normal, normal voice Neck: full range of motion Respiratory: chest non-tender, lungs clear, normal breath sounds, no respiratory distress, no wheezing, speaking full sentences Cardiovascular #1: regular rate, rhythm Rectal: deferred Genitourinary: normal inspection Musculoskeletal: normal range of motion, gait/station normal, non-tender Neurologic: alert, motor strength/tone normal, oriented x3, sensory intact, responsive, speech normal Psychiatric: judgement/insight normal Medical Decision Making PA Attestation Dr. Winter Is my supervising Physician whom patient management has been discussed with. Diagnostic Impression: Primary Impression: Viral upper respiratory tract infection with cough Additional Impression: Cough with exposure to COVID-19 virus ER Course 35-year-old female presents to the emergency department complaining of chills, increase in phlegm as well as body aches since February 18. Patient reports her daughter tested positive on the for COVID-19. Patient denies notable fevers. She denies significant past medical history. She denies asthma, COPD or history of smoking. She denies chest pain, shortness of breath, palpitations or syncope. Patient took NyQuil at approximately 3 PM today. She denies or suspicion of . No other aggravating or relieving factors at this time. Ddx considered but are not limited to URI, pneumonia, PE, strep pharyngitis, meningitis, COVID-19 Vital signs: Pt. is afebrile, the remaining VS are WNL H&PE are most consistent with URI- no meningeal signs, oropharynx is not involved, no evidence of bacterial infection at this time. --COVID-19 is suspec lashawn given occurrence during peak pandemic as well as positive close family member. The patient is nontoxic in appearance in no acute distress. No increased respiratory effort and does not demonstrate been in respiratory distress or needing supplemental oxygen at this time ORDERS: none required at this time, the diagnosis is clinical ED INTERVENTIONS: None required at this time. This patient was evaluated in the context of the global COVID-19 pandemic, which necessitated consideration that the patient might be at risk for infection with the SARS-COV-2 virus that causes COVID-19. Institutional protocols and algorithms that pertaining to the evaluation of patients at risk for COVID-19 are in a state of rapid change based on information released by multiple regulatory bodies including the CDC and federal and state organizations. These policies and algorithms were followed during the patient's care in the emergency department -I do not identify an emergent condition at this time. With current presentati on, pt. is stable for close outpatient follow up and conservative treatment. D/w pt. to return promptly to ED with worsening or new symptoms.- Pt. verbalizes' understanding and agreement with proposed treatment plan. DISCHARGE: At this time pt. is stable for d/c to home. Will provide printed patient care instructions, and any necessary prescriptions. Care plan and follow up instructions have been discussed with the patient prior to discharge. Last Vital Signs Date Time Temp Pulse Resp B/P (MAP) Pulse Ox O2 Delivery O2 Flow Rate FiO2 03/22/20 17:11 98.1 90 16 106/75 (85) 100 Room Air Disposition: HOME, SELF-CARE Condition: Stable Patient Instructions: Cough, Adult, [id number] Additional Instructions: ~ ~ An emergent medical condition has not been identified based on this patients presentation, exam and any necessary testing/imaging. The patient is determined to be stable for outpatient follow-up and management of symptoms by a primary care provider. PATIENT STATUS : STABLE FOR OUTPATIENT COVID-19 TESTING AND MANAGEMENT, Emergency Interventions are not required at this time. Take medications as directed. Follow up with a Primary Care Provider in 3-5 days, even if your symptoms have resolved. Return sooner to ED if new symptoms occur, or current symptoms become worse. Do not drink alcohol, drive, or operate heavy machinery while taking Cough Syrup as this may cause drowsiness. - Please note that this Emergency Department Report was dictated using [employer] manager technology software, occasionally this can lead to erroneous entry secondary to interpretation by the dictation equipment. Sandhya Gonzales Mar 22, 2020 18:15
[2020-03-22] MEDS ORDERED: IBUPROFEN600 M1 ORAL ×2 (18:16)
[2020-03-22] MEDS ORDERED: PROMETHAZINE-C118 M1 ORAL (18:16)
[2020-03-22] MEDS ORDERED: MUCINEX1200 MG PO ×2 (18:16)
[2020-03-22 18:25] VITALS: BP 106/75
--- NOTE | 2020-03-22 18:25 | NUR ---
ED Nurse Note: pt. left after being seen by the PA and did not sign any of the dc papers
== END 2020-03-22 18:25 | disposition left against medical advice (07) ==
LOC: EMR 17:31
DX: J06.9 Acute upper respiratory infection, unspecified (principal); R05 Cough; Z20.828 Contact with and (suspected) exposure to other viral communicable diseases
CPT/HCPCS: 99281

== ENCOUNTER 2020-06-09 19:20 | Emergency (ER) | payer OTHER ==
[~2020-06-09] VITALS: Ht 160 cm; Wt 69.4 kg
[~2020-06-09 19:20] MED LIST changes: +IBUPROFEN600 M1 ORAL; +MUCINEX1200 MG PO; +PROMETHAZINE-C118 M1 ORAL
[2020-06-09 19:27] VITALS: BP 132/76
[2020-06-09] MEDS: Augmentin 875mg Tab ORAL ONE (19:47)
--- NOTE | 2020-06-09 19:51 | Emergency Room Report ---
History of Present Illness General Chief Complaint: Toothache Present Illness HPI 35-year-old female with no signal medical history here complaining of 2 days of left lower left teeth pain with minimal swelling. Denies any tingling numbness. Rates the pain 10 at this time. Also complains of chills. Denies any sore throat, headache and dizziness per denies cough and congestion. Reports it started after eating meat and chicken. No pus drainage noted. Denies any earache. Denies . Allergies: Coded Allergies: No Known Allergies (Unverified , 07/16/18) COVID-19 Screening Contact w/high risk pt: No Experienced COVID-19 symptoms?: No COVID-19 Testing performed UPHOLSTERY ESTIMATOR: No Patient History Past Medical History: see triage record Past Surgical History: none Pertinent Family History: none Now: No Immunizations: UTD Reviewed Nursing Documentation: PMH: Agreed; PSxH: Agreed Review of Systems All Other Systems: negative except mentioned in HPI Physical Exam Vital Signs Date Time Temp Pulse Resp B/P (MAP) Pulse Ox O2 Delivery O2 Flow Rate FiO2 06/09/20 19:27 97.9 82 18 132/76 (94) 98 Room Air Sp02 EP Interpretation: reviewed, normal General Appearance: no apparent distress, alert, GCS 15, non-toxic Head: normocephalic, atraumatic ENT: normal pharynx, no angioedema, normal voice Neck: supple, thyroid normal, no meningismus, no bony tend, no carotid bruits Respiratory: lungs clear, no rhonchi, no respiratory distress, no retraction, no accessory muscle use Cardiovascular #1: regular rate, rhythm, no edema Cardiovascular #2: 2+ carotid (R), 2+ carotid (L) Gastrointestinal: normal bowel sounds, non tender, soft, non-distended, no guarding, no rebound Musculoskeletal: back normal Neurologic: alert, motor strength/tone normal, oriented x3, sensory intact, responsive, speech normal Psychiatric: judgement/insight normal, memory normal, mood/affect normal, no suicidal/homicidal ideation Skin: other - No cellulitic changes noted Lymphatic: no adenopathy Medical Decision Making PA Attestation All my diagnosis and treatment plans were reviewed ad discussed with my supervising physician Dr. Fuentes Diagnostic Impression: Primary Impression: Pain, dental ER Course 35-year-old female with no signal medical history here complaining of 2 days of left lower left teeth pain with minimal swelling. Denies any tingling numbness. Rates the pain 10 at this time. Also complains of chills. Denies any sore throat, headache and dizziness per denies cough and congestion. Reports it started after eating meat and chicken. No pus drainage noted. Denies any earache. Denies . Ddx considered but are not limited to : Cellulitis, superficial infection, abscess, Vital signs: are WNL, pt. is afebrile H&PE are most consistent with: Dental pain ORDERS: Augmentin, ibuprofen, lidocaine viscous ED INTERVENTIONS: First dose of Augmentin, Toradol IM DISCHARGE: At this time pt. is stable for d/c to home. Will provide printed patient care instructions, and any necessary prescriptions. Care plan and follow up instructions have been discussed with the patient prior to discharge. Advised patient to follow-up with his dentist, take medication as directed, worsening symptoms return to the emergency room Last Vital Signs Date Time Temp Pulse Resp B/P (MAP) Pulse Ox O2 Delivery O2 Flow Rate FiO2 06/09/20 19:27 97.9 82 18 132/76 (94) 98 Room Air Disposition: HOME, SELF-CARE Condition: Stable Scripts Lidocaine HCl (Lidocaine HCl Viscous) 100 Ml Solution 15 ML MM BID, #120 MG Prov: Georgina Meade 06/09/20 Ibuprofen (Ibu) 800 Mg Tablet 800 MG PO TID, #30 TAB Prov: Georgina Meade 06/09/20 Amoxicillin/Potassium Clav 875-125* (AUGMENTIN 875-125 TABLET*) 1 Each Tablet 1 TAB ORAL TWICE A DAY for 10 Days, #20 TAB Prov: Georgina Meade 06/09/20 Referrals: NON PHYSICIAN (PCP) Patient Instructions: Dental Pain Additional Instructions: Take medication as directed, follow-up with your dentist, if worsening symptoms return to the emergency room Georgina Meade Jun 09, 2020 19:50
[2020-06-09] MEDS: Ketorolac 30mg Inj IM ONE (19:52)
--- NOTE | 2020-06-09 19:52 | NUR ---
Pt reports L sided dental pain in the lower teeth that began x2 days ago. Pt reports tylenol medication and orajel did not relieve the pain. Pt states the pain is sharp and stabbing and intermittent at 10/10 when the pain cycle occurs approximately every 10 minutes. Pt reports being unable to sleep.
[2020-06-09] MEDS ORDERED: LIDOCAINE20 MG/1 M1 MM (19:53)
[2020-06-09] MEDS ORDERED: IBU800 MG PO (19:53)
[2020-06-09] MEDS ORDERED: AUGMENTIN 875-1 EAC1 ORAL (19:53)
== END 2020-06-09 20:17 | disposition home or self-care (01) ==
LOC: EMR 19:38
DX: K08.89 Other specified disorders of teeth and supporting structures (principal)
CPT/HCPCS: 96372; J1885; Z7502; 99283